=== PATIENT | female | born 1985 | race African-American/Black ===

== ENCOUNTER 2018-10-24 12:28 | Emergency (ER) | payer MEDICAID, OTHER ==
[~2018-10-24] VITALS: Ht 165.1 cm; Wt 113.4 kg
[2018-10-24 14:25] VITALS: BP 133/85
== END 2018-10-24 14:59 | disposition home or self-care (01) ==
LOC: ER 12:40
DX: S05.32XD Ocular laceration without prolapse or loss of intraocular tissue, left eye, subsequent encounter (principal); W26.8XXD Contact with other sharp object(s), not elsewhere classified, subsequent encounter

== ENCOUNTER → 2020-02-08 | Emergency (ER) | payer MEDICAID ==
[~2020-02-08] VITALS: Ht 165.1 cm; Wt 104.3 kg
[~2020-02-08] MED LIST: ACETAMINOPHEN 500 MG TAB PO ONE
[2020-02-08 04:45] LABS: Urine Amorphous Crystal FEW /hpf (None Seen); Urine Bacteria FEW /hpf (None Seen); Urine Blood Negative /uL (Negative); Urine Mucus FEW (None Seen); Urine Specific Gravity 1.028 (1.001-1.035); Urine WBC 4 /hpf (0 - 5)
[2020-02-08 05:30] VITALS: BP 115/75
== END | disposition home or self-care (01) ==
LOC: ER 03:07
DX: O26.892 Other specified pregnancy related conditions, second trimester (principal); M54.6 Pain in thoracic spine; M79.18 Myalgia, other site; Z3A.15 15 weeks gestation of pregnancy
CPT/HCPCS: 81001